=== PATIENT | female | born 1955 ===

== ENCOUNTER 2024-12-06 09:32 | Day surgery (SDC) | payer OTHER ==
[2024-12-06] VITALS (14 sets, daily range): BP systolic 96–145; BP diastolic 52–98
[~2024-12-06] VITALS: Ht 160 cm; Wt 51.4 kg
[~2024-12-06 09:32] MED LIST: BUPR150ER PO; LOSA25 PO; Lactated Ringer's 1,000 ML IV SCH; MULVITA PO; Ondansetron HCl 2 MG / ML 2ML Vial ONE
[2024-12-06] MEDS ORDERED: propofoL 20 ML IV ONE (10:27)
--- NOTE | 2024-12-06 10:32 | NUR ---
History, Chart, Medications and Allergies reviewed before start of procedure. Patient confirms NPO status and agrees with scheduled surgery. Reports taking all colon prep with clear results. Raymundo arranged home with friend, Aleksandra.
--- NOTE | 2024-12-06 11:21 | NUR ---
12/06/24 1121 Dashawn Shaw CONFIRMED AND REVIEWED H&P, MEDCICATIONS, ALLERGIES, MEDICAL HISTORY, RESPIRATORY HISTORY, VITAL SIGNS, 3-LEAD EKG, CONSENTS, AND PHYSICIAN ORDERS. PATIENT CONFIRMS NPO STATUS AND AGREES WITH SCHEDULED PROCEDURE. MONITOR INTACT WITH CONTINUOUS PULSE OXIMETRY, CAPNOGRAPHY, 3-LEAD EKG, INTERMITTENT BP. SUPPLEMENTAL O2 TO BE TITRATED THROUGHOUT PROCEDURE TO MAINTAIN O2 SATURATION ABOVE 90%. PATIENT DETERMINED TO BE ASA APPROPRIATE FOR PROPOFOL SEDATION PRIOR TO START OF PROCEDURE BY DR. SCOTT.
--- NOTE | 2024-12-06 12:02 | NUR ---
Discharge instructions reviewed with patient. Patient verbalizes understanding. Copy given to patient to take home. Patient States Post-Procedure ride home has been arranged. Discharged via wheelchair to private car for ride home.
== END 2024-12-06 12:03 | disposition home or self-care (01) ==
LOC: ORSCMMR 09:32 → ORD 10:30 → ORSCMMR 12:03
PROVIDERS: Internal Medicine Gastroenterology
PROC: 0DBN8ZX Excision of Sigmoid Colon, Via Natural or Artificial Opening Endoscopic, Diagnostic (ICD-10-PCS; principal; 2024-12-06 10:30)
DX: Z12.11 Encounter for screening for malignant neoplasm of colon (principal); R19.5 Other fecal abnormalities; K63.5 Polyp of colon; J44.9 Chronic obstructive pulmonary disease, unspecified; I10 Essential (primary) hypertension; Z79.899 Other long term (current) drug therapy
CPT/HCPCS: 88305; J2405; J2704; J7120